=== PATIENT | female | born 1950 | race Caucasian/White ===

== ENCOUNTER 2020-06-05 18:56 | Inpatient (IN) ==
[2020-06-05 19:31] LABS: Basophils % 0.2 %; Hematocrit 36.8 % (35.3-44.9); Hemoglobin 11.5 g/dL (11.5-15.4); Immature Granulocytes % 3.8 % (0-4); Lymphocytes # 0.3 K/mcL (0.6-4.6); Lymphocytes % 3.2 %; Mean Corpuscular HGB Conc 31.3 g/dL (31.6-35.5); Mean Corpuscular Hemoglobin 29.7 pg (28.0-33.3); Mean Corpuscular Volume 95.1 fL (83.0-100.0); Mean Platelet Volume 10.9 fL (9.4-12.4); Monocytes # 0.5 K/mcL (0.0-1.3); Monocytes % 6.4 %; Neutrophils # 7.3 K/mcL (1.6-8.9); Nucleated Red Blood Cells 0.2 /100 WBC (0); Platelet Count 187 K/mcL (140-400); Red Blood Count 3.87 M/mcL (3.82-4.97); Red Cell Distribution Width 18.4 % (11.5-14.5); Segmented Neutrophils % 86.4 %; White Blood Count 8.4 K/mcL (4.3-11.1)
[2020-06-05 19:39] LABS: INR 1.7
[2020-06-05 19:41] LABS: Activated Partial Thrombo Time 23.5 Seconds (26.0-36.0)
[2020-06-05 20:13] LABS: Alanine Aminotransferase 26 Units/L (7-52); Albumin 3.7 g/dL (3.5-5.7); Albumin/Globulin Ratio 1.4 (1.1-2.2); Alkaline Phosphatase 53 Units/L (34-104); Aspartate Amino Transferase 43 Units/L (13-39); BUN/Creatinine Ratio 30 (6-26); Bilirubin,Direct 0.1 mg/dL (0.0-0.2); Bilirubin,Indirect 0.5 mg/dL (0.0-1.0); Bilirubin,Total 0.6 mg/dL (0.3-1.0); Blood Urea Nitrogen 26 mg/dL (8-23); C-Reactive Protein 64 mg/L (Less than 10); Carbon Dioxide 21 mEq/L (23-29); Chloride 104 mEq/L (98-107); Ferritin 283 ng/mL (10-120); Globulin 2.6 g/dL (2.4-3.5); Glucose 95 mg/dL (70-105); Lactate Dehydrogenase 713 Units/L (140-271); Osmolality,Calculated 289 (280-300); Phosphorous 2.4 mg/dL (2.7-4.5); Potassium 4.2 mEq/L (3.5-5.1); Sodium 137 mEq/L (136-145); Total Protein 6.3 g/dL (6.4-8.9); Troponin I < 0.03 ng/mL (< 0.04); eGFR For African Americans > 60 (> 60); eGFR For Non-African Americans > 60 (> 60)
[2020-06-05] MEDS ORDERED: Melatonin 3 MG TABLET PO PRN (20:35)
[2020-06-05] MEDS ORDERED: Naloxone 0.4 MG/ML INJ IVP PRN (20:35)
[2020-06-05] MEDS ORDERED: Ondansetron 4 MG/2 ML VIAL IVP PRN (20:35)
[2020-06-05] MEDS ORDERED: Acetaminophen 325 MG TABLET PO PRN (20:35)
[2020-06-05] MEDS ORDERED: Dexamethasone 4 MG/ML VIAL IVP SCH (20:45)
[2020-06-05] MEDS: Dexamethasone Sodium Phos/PF 10 MG/ML VIAL IVP SCH (22:32)
[2020-06-05] MEDS: *HR* HYDROcodone/Acet 7.5/325 mg TABLET PO PRN (22:46)
[2020-06-05] MEDS ORDERED: *HR* Methotrexate 2.5 MG TABLET PO SCH (23:33)
[2020-06-06] MEDS: Ipratropium 1 PUFF INHALER IH SCH ×7 (00:39→23:36)
[2020-06-06] MEDS: Budesonide/Formoterol 160/4.5 1 PUFF INH IH SCH ×3 (00:49→19:58)
[2020-06-06 05:54] LABS: Basophils % 0.3 %; Hematocrit 33.4 % (35.3-44.9); Hemoglobin 10.5 g/dL (11.5-15.4); Immature Granulocytes % 3.6 % (0-4); Lymphocytes # 0.3 K/mcL (0.6-4.6); Lymphocytes % 4.2 %; Mean Corpuscular HGB Conc 31.4 g/dL (31.6-35.5); Mean Corpuscular Volume 95.4 fL (83.0-100.0); Mean Platelet Volume 10.8 fL (9.4-12.4); Monocytes # 0.3 K/mcL (0.0-1.3); Monocytes % 5.2 %; Neutrophils # 5.3 K/mcL (1.6-8.9); Platelet Count 154 K/mcL (140-400); Segmented Neutrophils % 86.7 %; White Blood Count 6.1 K/mcL (4.3-11.1)
[2020-06-06 06:06] LABS: INR 1.5; Prothrombin Time 17.3 Seconds (9.4-12.1)
[2020-06-06 06:08] LABS: Activated Partial Thrombo Time 24.8 Seconds (26.0-36.0)
[2020-06-06 06:33] LABS: BUN/Creatinine Ratio 29 (6-26); Blood Urea Nitrogen 24 mg/dL (8-23); Calcium 8.8 mg/dL (8.6-10.3); Carbon Dioxide 24 mEq/L (23-29); Chloride 106 mEq/L (98-107); Ferritin 212 ng/mL (10-120); Glucose 126 mg/dL (70-105); Magnesium 2.1 mg/dL (1.6-2.6); Osmolality,Calculated 292 (280-300); Phosphorous 3.5 mg/dL (2.7-4.5); Potassium 4.2 mEq/L (3.5-5.1); Sodium 138 mEq/L (136-145); Transferrin 200 mg/dL (203-362); eGFR For African Americans > 60 (> 60); eGFR For Non-African Americans > 60 (> 60)
[2020-06-06 08:26] LABS: C-Reactive Protein 89 mg/L (Less than 10)
[2020-06-06] MEDS: *HR* Rivaroxaban 10 MG TABLET PO SCH (08:57)
[2020-06-06] MEDS: Multivit/Ca/Min/Fe/FA 1 TAB TABLET PO SCH (08:58)
[2020-06-06] MEDS: amLODIPine 5 MG TABLET PO SCH (08:58)
[2020-06-06] MEDS: Dexamethasone Sodium Phos/PF 10 MG/ML VIAL IVP SCH (08:58)
[2020-06-06] MEDS: Torsemide 20 MG TABLET PO SCH (08:58)
[2020-06-06] MEDS ORDERED: Celecoxib 200 MG CAPSULE PO SCH (09:00)
[2020-06-06] MEDS ORDERED: *HR* Methotrexate 2.5 MG TABLET PO SCH (09:00)
[2020-06-06] MEDS: *HR* HYDROcodone/Acet 7.5/325 mg TABLET PO PRN ×2 (09:15→17:13)
[2020-06-06] MEDS: predniSONE 5 MG TABLET PO SCH (09:15)
[2020-06-06] MEDS ORDERED: hydroCHLOROthiazide 25 MG TABLET PO SCH (21:00)
[2020-06-07] MEDS: Ipratropium 1 PUFF INHALER IH SCH ×6 (03:33→23:41)
[2020-06-07] MEDS: Budesonide/Formoterol 160/4.5 1 PUFF INH IH SCH ×2 (07:52→20:05)
[2020-06-07] MEDS ORDERED: LEUCOVORIN CALCIUM 5 MG PO SCH (09:00)
[2020-06-07] MEDS: Dexamethasone Sodium Phos/PF 10 MG/ML VIAL IVP SCH (09:57)
[2020-06-07] MEDS: Multivit/Ca/Min/Fe/FA 1 TAB TABLET PO SCH (09:58)
[2020-06-07] MEDS: predniSONE 5 MG TABLET PO SCH (09:58)
[2020-06-07] MEDS: Torsemide 20 MG TABLET PO SCH (09:58)
[2020-06-07] MEDS: *HR* Rivaroxaban 10 MG TABLET PO SCH (09:58)
[2020-06-07] MEDS: amLODIPine 5 MG TABLET PO SCH (09:58)
[2020-06-07] MEDS: *HR* HYDROcodone/Acet 7.5/325 mg TABLET PO PRN ×2 (11:10→16:32)
[2020-06-07] MEDS: hydrOXYzine pamoate 25 MG CAPSULE PO PRN ×2 (11:10→16:32)
[2020-06-07] MEDS ORDERED: Dexamethasone Sodium Phos/PF 10 MG/ML VIAL IVP ONE (12:14)
[2020-06-07] MEDS: cefTRIAXone 1,000 MG in Water for inj. (sterile) 10 ML IVP SCH (14:02)
[2020-06-07 17:50] LABS: Basophils % 0.5 %; Mean Corpuscular HGB Conc 31.6 g/dL (31.6-35.5); Mean Corpuscular Volume 94.5 fL (83.0-100.0); Nucleated Red Blood Cells 0.2 /100 WBC (0); Red Cell Distribution Width 18.2 % (11.5-14.5)
[2020-06-07 17:52] LABS: Basophils # 0.1 K/mcL (0.0-0.2); Hematocrit 39.2 % (35.3-44.9); Hemoglobin 12.4 g/dL (11.5-15.4); Immature Granulocytes % 2.6 % (0-4); Immature Platelets 6.1 % (1.1-6.1); Lymphocytes # 0.2 K/mcL (0.6-4.6); Lymphocytes % 1.8 %; Mean Corpuscular Hemoglobin 29.9 pg (28.0-33.3); Mean Platelet Volume 10.9 fL (9.4-12.4); Monocytes # 0.8 K/mcL (0.0-1.3); Monocytes % 6.1 %; Neutrophils # 11.4 K/mcL (1.6-8.9); Platelet Count 146 K/mcL (140-400); Red Blood Count 4.15 M/mcL (3.82-4.97); White Blood Count 12.8 K/mcL (4.3-11.1)
[2020-06-07 18:17] LABS: Calcium 9.5 mg/dL (8.6-10.3); Potassium 4.5 mEq/L (3.5-5.1)
[2020-06-08] MEDS: Ipratropium 1 PUFF INHALER IH SCH ×5 (04:17→19:34)
[2020-06-08] MEDS: *HR* HYDROcodone/Acet 7.5/325 mg TABLET PO PRN ×3 (06:21→22:54)
[2020-06-08 06:30] LABS: Mean Corpuscular HGB Conc 31.8 g/dL (31.6-35.5); Red Cell Distribution Width 18.1 % (11.5-14.5)
[2020-06-08 06:32] LABS: Hematocrit 36.8 % (35.3-44.9); Hemoglobin 11.7 g/dL (11.5-15.4); Immature Platelets 6.8 % (1.1-6.1); Mean Corpuscular Hemoglobin 29.6 pg (28.0-33.3); Mean Corpuscular Volume 93.2 fL (83.0-100.0); Red Blood Count 3.95 M/mcL (3.82-4.97); White Blood Count 7.6 K/mcL (4.3-11.1)
[2020-06-08 07:04] LABS: Alanine Aminotransferase 34 Units/L (7-52); Albumin 3.4 g/dL (3.5-5.7); Albumin/Globulin Ratio 1.4 (1.1-2.2); Alkaline Phosphatase 74 Units/L (34-104); Aspartate Amino Transferase 49 Units/L (13-39); BUN/Creatinine Ratio 38 (6-26); Bilirubin,Direct 0.1 mg/dL (0.0-0.2); Bilirubin,Indirect 0.5 mg/dL (0.0-1.0); Bilirubin,Total 0.6 mg/dL (0.3-1.0); Blood Urea Nitrogen 40 mg/dL (8-23); Carbon Dioxide 28 mEq/L (23-29); Chloride 105 mEq/L (98-107); Globulin 2.5 g/dL (2.4-3.5); Glucose 106 mg/dL (70-105); Magnesium 2.4 mg/dL (1.6-2.6); Osmolality,Calculated 304 (280-300); Potassium 4.7 mEq/L (3.5-5.1); Sodium 142 mEq/L (136-145); Total Protein 5.9 g/dL (6.4-8.9); eGFR For African Americans > 60 (> 60); eGFR For Non-African Americans 51 (> 60)
[2020-06-08] MEDS: Budesonide/Formoterol 160/4.5 1 PUFF INH IH SCH ×2 (07:56→19:35)
[2020-06-08] MEDS: *HR* Rivaroxaban 10 MG TABLET PO SCH (08:53)
[2020-06-08] MEDS: cefTRIAXone 1,000 MG in Water for inj. (sterile) 10 ML IVP SCH (08:53)
[2020-06-08] MEDS: Multivit/Ca/Min/Fe/FA 1 TAB TABLET PO SCH (08:53)
[2020-06-08] MEDS: amLODIPine 5 MG TABLET PO SCH (08:53)
[2020-06-08] MEDS: Cholecalciferol (D-3) 1,000 UNIT (25MCG) TABLET PO SCH (08:53)
[2020-06-08] MEDS: Torsemide 20 MG TABLET PO SCH (08:53)
[2020-06-08] MEDS: predniSONE 5 MG TABLET PO SCH (08:53)
[2020-06-08] MEDS: Dexamethasone Sodium Phos/PF 10 MG/ML VIAL IVP SCH (08:54)
[2020-06-08] MEDS ORDERED: hydroCHLOROthiazide 25 MG TABLET PO SCH (09:00)
[2020-06-09] MEDS: Ipratropium 1 PUFF INHALER IH SCH ×7 (00:14→23:06)
[2020-06-09 04:59] LABS: Basophils % 0.3 %; Hematocrit 37.1 % (35.3-44.9); Hemoglobin 11.5 g/dL (11.5-15.4); Immature Platelets 6.8 % (1.1-6.1); Lymphocytes # 0.3 K/mcL (0.6-4.6); Mean Corpuscular Hemoglobin 29.3 pg (28.0-33.3); Mean Corpuscular Volume 94.4 fL (83.0-100.0); Monocytes # 0.7 K/mcL (0.0-1.3); Monocytes % 7.2 %; Platelet Count 121 K/mcL (140-400); Red Blood Count 3.93 M/mcL (3.82-4.97); Red Cell Distribution Width 17.9 % (11.5-14.5); Segmented Neutrophils % 87.5 %; White Blood Count 10.3 K/mcL (4.3-11.1)
[2020-06-09 05:11] LABS: BUN/Creatinine Ratio 42 (6-26); Blood Urea Nitrogen 45 mg/dL (8-23); Calcium 8.8 mg/dL (8.6-10.3); Carbon Dioxide 30 mEq/L (23-29); Chloride 103 mEq/L (98-107); Glucose 108 mg/dL (70-105); Magnesium 2.5 mg/dL (1.6-2.6); Osmolality,Calculated 306 (280-300); Potassium 3.9 mEq/L (3.5-5.1); Sodium 142 mEq/L (136-145); eGFR For African Americans > 60 (> 60); eGFR For Non-African Americans 51 (> 60)
[2020-06-09] MEDS: *HR* HYDROcodone/Acet 7.5/325 mg TABLET PO PRN ×4 (06:27→22:14)
[2020-06-09] MEDS: Budesonide/Formoterol 160/4.5 1 PUFF INH IH SCH ×2 (07:52→19:43)
[2020-06-09] MEDS: Multivit/Ca/Min/Fe/FA 1 TAB TABLET PO SCH (09:01)
[2020-06-09] MEDS: Cholecalciferol (D-3) 1,000 UNIT (25MCG) TABLET PO SCH (09:01)
[2020-06-09] MEDS: Torsemide 20 MG TABLET PO SCH (09:02)
[2020-06-09] MEDS: amLODIPine 5 MG TABLET PO SCH (09:02)
[2020-06-09] MEDS: cefTRIAXone 1,000 MG in Water for inj. (sterile) 10 ML IVP SCH (09:02)
[2020-06-09] MEDS: *HR* Rivaroxaban 10 MG TABLET PO SCH (09:02)
[2020-06-09] MEDS: Dexamethasone Sodium Phos/PF 10 MG/ML VIAL IVP SCH (09:02)
[2020-06-09] MEDS: *HR* LORazepam 2 MG/ML VIAL IVP PRN ×2 (11:51→22:13)
[2020-06-09 16:48] LABS: ABG Base Excess 3 mEq/L (-2 to 3); ABG HCO3 27 mEq/L (21-27); ABG Oxygen Saturation 90 % (95-98); ABG PCO2 40 mmHg (35-45); ABG PH 7.44 pH Units (7.32-7.45); ABG PO2 56 mmHg (85-104); ABG TCO2 28 mEq/L (20-26)
[2020-06-10 02:03] LABS: Basophils % 0.3 %; Hemoglobin 11.6 g/dL (11.5-15.4); Immature Granulocytes % 2.3 % (0-4); Nucleated Red Blood Cells 0.2 /100 WBC (0)
[2020-06-10 02:05] LABS: Hematocrit 36.1 % (35.3-44.9); Immature Platelets 7.3 % (1.1-6.1); Lymphocytes # 0.3 K/mcL (0.6-4.6); Lymphocytes % 2.4 %; Mean Corpuscular HGB Conc 32.1 g/dL (31.6-35.5); Mean Corpuscular Hemoglobin 29.7 pg (28.0-33.3); Mean Corpuscular Volume 92.6 fL (83.0-100.0); Monocytes # 0.8 K/mcL (0.0-1.3); Neutrophils # 10.2 K/mcL (1.6-8.9); Platelet Count 109 K/mcL (140-400); Red Cell Distribution Width 17.4 % (11.5-14.5); White Blood Count 11.6 K/mcL (4.3-11.1)
[2020-06-10 02:22] LABS: Calcium 8.6 mg/dL (8.6-10.3); Magnesium 2.6 mg/dL (1.6-2.6); Phosphorous 4.4 mg/dL (2.7-4.5)
[2020-06-10] MEDS: Ipratropium 1 PUFF INHALER IH SCH ×5 (03:13→20:51)
[2020-06-10] MEDS: *HR* HYDROcodone/Acet 7.5/325 mg TABLET PO PRN ×3 (06:36→22:45)
[2020-06-10] MEDS: Budesonide/Formoterol 160/4.5 1 PUFF INH IH SCH ×2 (07:58→20:51)
[2020-06-10] MEDS: *HR* LORazepam 2 MG/ML VIAL IVP PRN ×2 (08:52→22:26)
[2020-06-10] MEDS: *HR* Rivaroxaban 10 MG TABLET PO SCH (08:53)
[2020-06-10] MEDS: Torsemide 20 MG TABLET PO SCH (08:54)
[2020-06-10] MEDS: Multivit/Ca/Min/Fe/FA 1 TAB TABLET PO SCH (08:54)
[2020-06-10] MEDS: Cholecalciferol (D-3) 1,000 UNIT (25MCG) TABLET PO SCH (08:54)
[2020-06-10] MEDS: cefTRIAXone 1,000 MG in Water for inj. (sterile) 10 ML IVP SCH (08:54)
[2020-06-10] MEDS: Dexamethasone Sodium Phos/PF 10 MG/ML VIAL IVP SCH (08:54)
[2020-06-10] MEDS: amLODIPine 5 MG TABLET PO SCH (08:54)
[2020-06-10] MEDS: hydrOXYzine pamoate 25 MG CAPSULE PO PRN ×2 (16:29→22:26)
[2020-06-11] MEDS: Ipratropium 1 PUFF INHALER IH SCH ×6 (00:03→20:30)
[2020-06-11 05:16] LABS: Basophils # 0.1 K/mcL (0.0-0.2); Basophils % 0.3 %; Hematocrit 37.9 % (35.3-44.9); Hemoglobin 12.2 g/dL (11.5-15.4); Lymphocytes # 0.4 K/mcL (0.6-4.6); Lymphocytes % 2.5 %; Mean Corpuscular HGB Conc 32.2 g/dL (31.6-35.5); Mean Corpuscular Hemoglobin 30.2 pg (28.0-33.3); Mean Corpuscular Volume 93.8 fL (83.0-100.0); Mean Platelet Volume 11.6 fL (9.4-12.4); Monocytes # 1.2 K/mcL (0.0-1.3); Monocytes % 7.4 %; Neutrophils # 14.3 K/mcL (1.6-8.9); Platelet Count 143 K/mcL (140-400); Red Blood Count 4.04 M/mcL (3.82-4.97); Red Cell Distribution Width 17.4 % (11.5-14.5); Segmented Neutrophils % 86.8 %; White Blood Count 16.4 K/mcL (4.3-11.1)
[2020-06-11 05:25] LABS: BUN/Creatinine Ratio 50 (6-26); Blood Urea Nitrogen 51 mg/dL (8-23); Calcium 8.8 mg/dL (8.6-10.3); Carbon Dioxide 31 mEq/L (23-29); Chloride 101 mEq/L (98-107); Glucose 115 mg/dL (70-105); Magnesium 2.8 mg/dL (1.6-2.6); Osmolality,Calculated 307 (280-300); Phosphorous 3.6 mg/dL (2.7-4.5); Potassium 3.9 mEq/L (3.5-5.1); Sodium 141 mEq/L (136-145); eGFR For African Americans > 60 (> 60); eGFR For Non-African Americans 54 (> 60)
[2020-06-11] MEDS: *HR* HYDROcodone/Acet 7.5/325 mg TABLET PO PRN ×2 (05:53→17:03)
[2020-06-11] MEDS: Budesonide/Formoterol 160/4.5 1 PUFF INH IH SCH ×2 (07:50→20:30)
[2020-06-11] MEDS: Dexamethasone Sodium Phos/PF 10 MG/ML VIAL IVP SCH (09:37)
[2020-06-11] MEDS: amLODIPine 5 MG TABLET PO SCH (09:37)
[2020-06-11] MEDS: cefTRIAXone 1,000 MG in Water for inj. (sterile) 10 ML IVP SCH (09:37)
[2020-06-11] MEDS: Multivit/Ca/Min/Fe/FA 1 TAB TABLET PO SCH (09:37)
[2020-06-11] MEDS: Cholecalciferol (D-3) 1,000 UNIT (25MCG) TABLET PO SCH (09:38)
[2020-06-11] MEDS: Torsemide 20 MG TABLET PO SCH (09:38)
[2020-06-11] MEDS: *HR* Rivaroxaban 10 MG TABLET PO SCH (09:38)
[2020-06-11 19:38] VITALS: BP 120/76
[2020-06-11] MEDS: *HR* LORazepam 2 MG/ML VIAL IVP PRN (20:58)
[2020-06-12] MEDS ORDERED: Dexamethasone Sodium Phos/PF 10 MG/ML VIAL IVP SCH (09:00)
== END 2020-06-11 21:30 | disposition short-term general hospital (02) | DRG 177 ==
LOC: 2NENU 18:56 → EMEROOARM 18:56 → SUATTDRO 20:29 → 2NENU 21:01 → SUATTDRO 06-06 08:30
PROVIDERS: ADMIT Internal Medicine; ATTEND Student in an Organized Health Care Education/Training Program